=== PATIENT | female | born 1955 | race Caucasian/White ===

== ENCOUNTER 2025-06-11 16:22 | Emergency (ER) | payer MEDICARE, OTHER, SELFPAY ==
[2025-06-11 16:28] VITALS: BP 168/73
[2025-06-11 16:53] LABS: Hematocrit 36.5 % (37.0-47.0); Hemoglobin 12.3 g/dL (12.0-16.0); Mean Corp Hgb Conc. 33.7 g/dL (33.0-37.0); Mean Corpuscular Volume 99.2 fL (81.0-99.0); Nucleated Red Blood Cells % 0 %; Platelet Count 200 10^3/uL (130-400); Red Cell Dist. Width 12.9 % (11.5-14.5)
[2025-06-11 17:00] VITALS: BP 144/57
[2025-06-11 17:08] LABS: ALT (SGPT) 16 U/L (0-35); AST (SGOT) 25 U/L (14-36); Albumin 4.5 g/dl (3.5-5.0); Alkaline Phosphatase 45 U/L (38-126); Blood Urea Nitrogen 14 mg/dl (7-17); Calcium 8.6 mg/dl (8.4-10.2); Carbon Dioxide 34 mmol/L (22-30); Chloride 98 mmol/L (98-107); Glucose 100 mg/dl (70-99); Potassium 4.0 mmol/L (3.5-5.1); Sodium 136 mmol/L (135-145); Total Protein 7.2 g/dl (6.3-8.2); eGFR > 60.00
--- NOTE | 2025-06-11 17:17 | ED.GENMED ---
History of Present Illness
General
Chief Complaint: Chest Pain
Source: patient
Time Seen by Provider: 06/11/25 17:10
History of Present Illness
History of Present Illness:
69-year-old female presents to the emergency room complaining of a tightness in her chest which has been present for the past 3 days or so. Patient initially developed the discomfort while she was laying in bed. She noticed this pressure which was
followed by nausea vomiting. She multiple episodes of vomiting over the next day or so. The vomiting is gone but she continues to have this unusual sensation in her chest. She has not had reflux or heartburn in the past but this is what she
thinks would feel like. She denies any associated shortness of breath, diaphoresis. The discomfort does not seem to be exacerbated by exertion. The discomfort is there most of the time but does go away at times. She cannot associate anything
particular it makes it go away or come back. She denies any previous cardiac history. She does have a history of breast cancer with a mastectomy. She did develop some bone mets for which she is on an oral medication and has been adequately
controlling her breast cancer.
Past History
Past History
ED Past Medical History: Cancer (Breast cancer) and HTN
ED Past Surgical History: Gynecological
Social History
Tobacco: Non-smoker
Phy Exam
Physical Exam
Physical Exam:
General: Awake, Alert, Oriented X3. No acute distress.
Vitals: unremarkable
Head: Atraumatic
Eyes: Pupils equal, EOMI
Throat: Airway intact, no exudates
Neck: Trachea midline
Lungs: Clear and equal b/l
Heart: Regular rate, no murmurs
Abd: Soft, Nontender, No pulsatile mass
Neuro: Nonfocal
Skin: Warm, dry, no rash
Extremities: pulses equal b/l, no edema
Scores
Heart Score for Chest Pain Patients
STEMI patient?: No
History: Slightly or Non-Suspicious
ECG: Nonspecific Repolarization
Age: >/= 65 years
Risk Factors: 1 or 2 Risk Factors
Troponin: </= Normal Limit
Heart Score for Chest Pain Patients: 4
Heart Score Risk: 20.3% MACE over next 6 weeks
Course
Orders/Labs/Results
Orders:
Orders
06/11/25 16:24
Electrocardiogram (*1) Urgent
Reason for Study: Chest Pain
EKG- Treatment ONCE
06/11/25 16:31
CR Chest - 2 Views Urgent
Comment:
Reason For Exam: cough
06/11/25 16:35
Complete Blood Count/With Diff Urgent
Comprehensive Metabolic Panel Urgent
Troponin I Urgent
06/11/25 18:37
Electrocardiogram (*1) Urgent
Reason for Study: Chest Pain
EKG- Treatment ONCE
06/11/25 19:39
Troponin I Urgent
Abnormal Lab Results
06/11/25
16:35
WBC 3.6 L 10^3/uL
(4.8-10.8)
RBC 3.68 L 10^6/uL
(4.20-5.40)
Hct 36.5 L %
(37.0-47.0)
MCV 99.2 H fL
(81.0-99.0)
MCH 33.4 H pg
(27.0-31.0)
MPV 10.6 H fL
(7.4-10.4)
Absolute Lymphs (auto) 0.8 L 10^3/uL
(1.2-3.4)
Carbon Dioxide 34 H mmol/L
(22-30)
Glucose 100 H mg/dl
(70-99)
06/11/25 16:35
06/11/25 16:35
Vital Signs
Initial and Last Documented VS:
Initial Vital Signs
Temp Pulse Resp BP Pulse Ox
97.6 F 63 16 168/73 99
06/11/25 16:28 06/11/25 16:28 06/11/25 16:28 06/11/25 16:28 06/11/25 16:28
Last Documented Vital Signs
Temp Pulse Resp BP Pulse Ox
97.6 F 63 25 112/50 94
06/11/25 16:28 06/11/25 21:30 06/11/25 21:30 06/11/25 21:00 06/11/25 21:30
MDM/Problems Addressed
Differential Diagnosis Includes:
GERD, NSTEMI, ACS
MDM/Problems Addressed:
Patient presents with chest tightness heartburn. Labs including 2 troponins are reassuring. No EKG changes. Suspect GERD as the source of her discomfort. Recommend outpatient follow-up and an outpatient course of Protonix
*Radiology
Radiology exam reviewed: radiology read reviewed
*Pulse Oximetry
SaO2: 99
Oxygen Mode of Delivery: Room air
Patient hypoxic: no
*EKG
Interpreted by ED Provider?: Yes
Interpretation: abnormal
Heart Rate: 65
Rate: normal
Rhythm: sinus and PAC's
[place]: normal axis
Interval: normal interval
QRS Pattern: normal QRS
Ischemia: no ischemia
*Engineering Illustrator Interpretation
Rate: normal
Interpretation: abnormal
Rhythm: sinus and PAC's
*Critical Care Note
Total Time (30-74mins, 75-104mins- exclusive of procedures): Not Applicable
ED Attending Note
-
Portions of this chart may have been created with voice recognition software.� Occasional wrong word or��sound alike� substitutions may have occurred due to the inherent limitations of voice recognition software.
Discharge Plan
Departure
Patient Disposition: Home (Routine Discharge)
Date of Disposition: 06/11/25
Time of Disposition: 21:14
Patient with high blood pressure during this ER visit?: Yes
Condition: Good
Discharge Problem:
Weakness
Instructions: Acid Reflux and GERD in Adults (DC), Chest Pain PCP Follow Up, BLOOD PRESSURE
Prescriptions:
No Action
calcium carbonate-vitamin D3 [Calcium 600 with Vitamin D3] 600 mg-10 mcg (400 unit) Capsule
1 cap PO DAILY
Kisqali 400 mg/day (200 mg x 2) Tablet
400 mg PO DAILY
Referrals:
Ghassan Toure MD [Active, Gastroenterology]
NONE,* [Family Provider, Internal Medicine]
Activity Restrictions/Additional Instructions:
All your cardiac testing is normal. I suspect your discomfort is related to esophageal irritation. Recommend you do Prilosec OTC or similar medication for the next 4 weeks. Follow-up with your primary care doctor. 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
Interventions
Interventions:
*Risk Screen - Suicide Last Done: 06/11/25 16:28
*General Assessment Last Done: 06/11/25 16:28
*Neglect/Abuse Screening Last Done: 06/11/25 16:28
*ED- Fall Risk Assessment Last Done: 06/11/25 17:43
*ED COVID-19 Vaccine History Last Done: 06/11/25 17:43
*ED Influenza Vaccine History Last Done: 06/11/25 17:43
*Nursing Disposition Last Done: 06/11/25 21:43
ED- Cardiac Assessment Last Done: 06/11/25 17:43
Discharge Date and Time
Discharge Date/Time: 06/11/25 21:43
Print Language: [place]ET[place]ESE
[2025-06-11 17:20] LABS: Troponin I 0.014 ng/ml
[2025-06-11 17:43] VITALS: BMI 36.4
[2025-06-11 18:00] VITALS: BP 125/56
[2025-06-11 19:00] VITALS: BP 138/56
[2025-06-11 20:00] VITALS: BP 119/56
[2025-06-11 20:11] LABS: Troponin I < 0.012 ng/ml
[2025-06-11 21:00] VITALS: BP 112/50
== END 2025-06-11 21:43 | disposition home or self-care (01) ==
LOC: EMR 16:22
PROVIDERS: Emergency Medicine; EMERGENCY PHYSICIAN Emergency Medicine
DX: R07.9 Chest pain, unspecified (principal); I49.1 Atrial premature depolarization; I10 Essential (primary) hypertension; C50.919 Malignant neoplasm of unspecified site of unspecified female breast; C79.51 Secondary malignant neoplasm of bone; Z90.13 Acquired absence of bilateral breasts and nipples
CPT/HCPCS: 99284; 71046; 80053; 84484; 85025; 93005